=== PATIENT | female | born 1985 | race Caucasian/White ===

== ENCOUNTER 2016-04-29 11:20 | Outpatient (CLI) | payer OTHER | END 2016-04-29 23:59 | disposition home or self-care (01) | DX: Z36 Encounter for antenatal screening of mother (principal) ==

== ENCOUNTER 2016-04-29 12:10 | Outpatient (CLI) | payer OTHER | END 2016-04-29 16:15 | disposition home or self-care (01) | DX: O26.843 Uterine size-date discrepancy, third trimester (principal); O43.193 Other malformation of placenta, third trimester; Z3A.36 36 weeks gestation of pregnancy ==

== ENCOUNTER 2016-05-02 | Outpatient (CLI) | payer OTHER | END 2016-05-02 10:56 | disposition home or self-care (01) ==

== ENCOUNTER 2016-05-05 | Outpatient (CLI) | payer OTHER | END 2016-05-05 10:30 | disposition home or self-care (01) ==

== ENCOUNTER 2016-05-09 09:51 | Outpatient (CLI) | payer OTHER | END 2016-05-09 10:25 | disposition home or self-care (01) | DX: O36.5930 Maternal care for other known or suspected poor fetal growth, third trimester, not applicable or unspecified (principal); Z3A.37 37 weeks gestation of pregnancy ==

== ENCOUNTER 2016-05-23 09:53 | Outpatient (CLI) | payer OTHER ==
[2016-05-23 10:11] VITALS: BP 120/80
== END 2016-05-23 10:30 | disposition home or self-care (01) ==
LOC: WFO 09:53 → OB 09:56 → WFO 10:30
PROVIDERS: ATTEND Obstetrics & Gynecology
DX: O36.5930 Maternal care for other known or suspected poor fetal growth, third trimester, not applicable or unspecified (principal); Z3A.39 39 weeks gestation of pregnancy
CPT/HCPCS: 59025

== ENCOUNTER 2016-05-27 09:13 | Inpatient (IN) | payer OTHER ==
[2016-05-26] MEDS: ACETAMINOPHEN 325 MG TABLET PO PRN (21:18)
[2016-05-27] MEDS: ACETAMINOPHEN 325 MG TABLET PO PRN (04:37)
[2016-05-27] MEDS: LACTATED RINGERS 1,000 ML IV SCH ×2 (09:00→09:24)
[2016-05-27] MEDS: OXYTOCIN/LACTATED RINGERS 250 ML IV SCH (09:00)
[2016-05-27] MEDS: SODIUM CHLORIDE FLUSH 0.9% 10 ML SYRINGE IVP SCH ×4 (09:00→18:08)
[~2016-05-27 09:13] MED LIST: CARBOPROST TROMETHAMINE 250 MCG/ML AMP IM PRN; METHYLERGONOVINE 0.2 MG/ML AMP IM PRN; ONDANSETRON 4 MG/2 ML VIAL IVP PRN; SODIUM CHLORIDE FLUSH 0.9% 10 ML SYRINGE IVP ONE; SODIUM CHLORIDE FLUSH 0.9% 10 ML SYRINGE IVP PRN; TERBUTALINE 1 MG/ML VIAL SUBQ SCH; ZOLPIDEM 5 MG TABLET PO PRN; fentaNYL 100 MCG/2 ML VIAL IVP PRN; miSOPROStol 200 MCG TABLET PR PRN
[2016-05-27] MEDS ORDERED: ZOLPIDEM 5 MG TABLET PO PRN (17:59)
[2016-05-28] MEDS: SODIUM CHLORIDE FLUSH 0.9% 10 ML SYRINGE IVP SCH ×2 (05:12→08:56)
[2016-05-28] MEDS: LACTATED RINGERS 1,000 ML IV SCH ×3 (06:43→08:58)
[2016-05-28] MEDS: OXYTOCIN/LACTATED RINGERS 250 ML IV SCH (08:57)
== END 2016-05-28 19:15 | disposition home or self-care (01) | DRG 781 ==
PROC: 0U7C7ZZ Dilation of Cervix, Via Natural or Artificial Opening (ICD-10-PCS; principal; 2016-05-26)
PROC: 3E033VJ Introduction of Other Hormone into Peripheral Vein, Percutaneous Approach (ICD-10-PCS; 2016-05-27)
DX: O36.5930 Maternal care for other known or suspected poor fetal growth, third trimester, not applicable or unspecified (principal); O26.893 Other specified pregnancy related conditions, third trimester; O61.0 Failed medical induction of labor; O26.843 Uterine size-date discrepancy, third trimester; Z67.91 Unspecified blood type, Rh negative; Z3A.38 38 weeks gestation of pregnancy

== ENCOUNTER 2016-05-31 00:29 | Inpatient (IN) | payer OTHER ==
[2016-05-31] MEDS: LACTATED RINGERS 1,000 ML IV SCH ×4 (00:19→10:55)
[~2016-05-31 00:29] MED LIST changes: -CARBOPROST TROMETHAMINE 250 MCG/ML AMP IM PRN; +DINOPROSTONE 10 MG SUPP VG ONE; -METHYLERGONOVINE 0.2 MG/ML AMP IM PRN; -ONDANSETRON 4 MG/2 ML VIAL IVP PRN; -SODIUM CHLORIDE FLUSH 0.9% 10 ML SYRINGE IVP PRN; -TERBUTALINE 1 MG/ML VIAL SUBQ SCH; -ZOLPIDEM 5 MG TABLET PO PRN; -miSOPROStol 200 MCG TABLET PR PRN
[2016-05-31] MEDS ORDERED: SUFENTA/BUPIV 0.4 MCG/0.0625% 150 ML EP ONE ×2 (00:53→11:03)
[2016-05-31] MEDS ORDERED: LIDOCAINE 1% 50 ML MDV SUBQ ONE (00:58)
[2016-05-31] MEDS ORDERED: ROPIVACAINE 0.2% PF 20 ML AMPULE SUBQ ONE (00:58)
[2016-05-31] MEDS ORDERED: LIDOCAINE 1% 50 ML MDV ONE (06:08)
[2016-05-31] MEDS ORDERED: OXYTOCIN/LACTATED RINGERS 250 ML IV ONE ×2 (06:08→15:08)
[2016-05-31] MEDS ORDERED: SODIUM CHLORIDE FLUSH 0.9% 10 ML SYRINGE IVP PRN (10:46)
[2016-05-31] MEDS ORDERED: LACTATED RINGERS 1,000 ML IV SCH ×2 (11:00→16:00)
[2016-05-31] MEDS ORDERED: METOCLOPRAMIDE 10 MG/2 ML VIAL IVP PRN (12:48)
[2016-05-31] MEDS ORDERED: LACTATED RINGERS 500 ML IV ONE (12:48)
[2016-05-31] MEDS ORDERED: SUFENTA/BUPIV 0.4 MCG/0.0625% EPIDURAL 150 ML EP PRN (12:48)
[2016-05-31] MEDS ORDERED: NALOXONE 0.4 MG/ML VIAL IVP PRN (12:48)
[2016-05-31] MEDS ORDERED: diphenhydrAMINE INJ 50 MG/ML VIAL IVP PRN (12:48)
[2016-05-31] MEDS ORDERED: ONDANSETRON 4 MG/2 ML VIAL IVP PRN (12:48)
[2016-05-31] MEDS ORDERED: NALBUPHINE 20 MG/ML AMP IVP PRN (12:48)
[2016-05-31] MEDS ORDERED: ePHEDrine 50 MG/ML AMP IVP PRN (12:48)
[2016-05-31] MEDS ORDERED: SODIUM CHLORIDE FLUSH 0.9% 10 ML SYRINGE IVP SCH (14:00)
[2016-05-31] MEDS ORDERED: HYDROCORTISONE 1% CREAM 28 GM TUBE PR PRN (15:08)
[2016-05-31] MEDS ORDERED: HYDROCORTISONE/PRAMOXINE 10 GM PR PRN (15:08)
[2016-05-31] MEDS ORDERED: ACETAMINOPHEN 325 MG TABLET PO PRN (15:08)
[2016-05-31] MEDS ORDERED: WITCH HAZEL/GLYCERIN 1 EACH MED..PAD TOP PRN (15:08)
[2016-05-31] MEDS ORDERED: oxyCODONE 5 MG TABLET PO PRN (15:08)
[2016-05-31] MEDS: IBUPROFEN 800 MG TABLET PO SCH (18:21)
[2016-06-01] MEDS: IBUPROFEN 800 MG TABLET PO SCH ×4 (00:03→18:26)
[2016-06-01] MEDS: SIMETHICONE CHEW 80 MG TABLET PO SCH ×4 (09:02→20:09)
[2016-06-01] MEDS: DOCUSATE SODIUM 100 MG CAPSULE PO SCH ×2 (09:02→20:08)
[2016-06-01] MEDS: FERROUS SULFATE 325 MG TABLET PO SCH (09:31)
[2016-06-01] MEDS ORDERED: RHO(D) IMMUNE GLOBULIN 300 MCG SYRINGE IM ONE (15:06)
[2016-06-02] MEDS: IBUPROFEN 800 MG TABLET PO SCH ×2 (00:31→05:46)
[2016-06-02] MEDS: FERROUS SULFATE 325 MG TABLET PO SCH (08:54)
[2016-06-02] MEDS: DOCUSATE SODIUM 100 MG CAPSULE PO SCH (08:54)
== END 2016-06-02 12:00 | disposition home or self-care (01) | DRG 775 ==
PROC: 3E0P7GC Introduction of Other Therapeutic Substance into Female Reproductive, Via Natural or Artificial Opening (ICD-10-PCS; 2016-05-30)
PROC: 0HQ9XZZ Repair Perineum Skin, External Approach (ICD-10-PCS; principal; 2016-05-31)
PROC: 10E0XZZ Delivery of Products of Conception, External Approach (ICD-10-PCS; principal; 2016-05-31)
PROC: 3E0234Z Introduction of Serum, Toxoid and Vaccine into Muscle, Percutaneous Approach (ICD-10-PCS; 2016-06-01)
DX: O36.5930 Maternal care for other known or suspected poor fetal growth, third trimester, not applicable or unspecified (principal); O32.2XX0 Maternal care for transverse and oblique lie, not applicable or unspecified; O76 Abnormality in fetal heart rate and rhythm complicating labor and delivery; O43.193 Other malformation of placenta, third trimester; O69.81X0 Labor and delivery complicated by cord around neck, without compression, not applicable or unspecified; O70.0 First degree perineal laceration during delivery; O99.013 Anemia complicating pregnancy, third trimester; D64.9 Anemia, unspecified; O99.63 Diseases of the digestive system complicating the puerperium; K59.00 Constipation, unspecified; Z3A.39 39 weeks gestation of pregnancy; Z37.0 Single live birth; O26.893 Other specified pregnancy related conditions, third trimester; Z67.41 Type O blood, Rh negative

== ENCOUNTER 2016-11-28 10:50 | Outpatient (CLI) | payer OTHER ==
[2016-11-28 14:33] LABS: BASOPHILS # (AUTO) 0.1 10^3/uL (0.0-0.1); EOSINOPHILS # (AUTO) 0.1 10^3/uL (0.0-0.7); EOSINOPHILS % (AUTO) 1.1 %; HCT - HEMATOCRIT 39.9 % (37.0-47.0); HGB - HEMOGLOBIN 13.5 g/dL (12.0-16.0); LYMPHOCYTES # (AUTO) 1.8 10^3/uL (1.5-3.5); MEAN CORPUSCULAR HEMOGLOBIN 30.1 pg (27.0-31.0); MEAN CORPUSCULAR HGB CONC 33.7 g/dL (32.0-36.0); MEAN CORPUSCULAR VOLUME 89.4 fL (81.0-99.0); MEAN PLATELET VOLUME 9.7 fL (7.9-10.8); MONOCYTES # (AUTO) 0.4 10^3/uL (0.0-1.0); MONOCYTES % (AUTO) 7.9 %; NUCLEATED RED BLOOD CELLS AUTO 0.1 /100WBC; RED BLOOD COUNT 4.47 10^6/uL (4.20-5.40); RED CELL DISTRIBUTION WIDTH 12.7 % (12.0-15.0); UNCORRECTED WHITE BLOOD COUNT 5.4 x10^3/uL; WHITE BLOOD COUNT 5.4 x10^3/uL (4.8-10.8)
[2016-11-28 15:23] LABS: FERRITIN 10.5 ng/mL (11.0-306.8)
[2016-11-28 15:27] LABS: FOLATE 21.68 ng/mL (5.90 - >24.8)
[2016-11-28 17:38] LABS: IRON 110 ug/dL (28-170); TOTAL IRON BINDING CAPACITY 498 ug/dL (250-450); TRANSFERRIN 356 mg/dL (192-382)
== END 2016-11-28 10:51 | disposition home or self-care (01) ==
LOC: LAB.WCP 10:50
PROVIDERS: ATTEND Family Medicine
DX: D50.9 Iron deficiency anemia, unspecified (principal)
CPT/HCPCS: 36415; 82607; 82728; 82746; 83540; 84466; 85025

== ENCOUNTER 2018-11-13 19:58 | Outpatient (CLI) | payer OTHER ==
--- NOTE | 2018-11-14 14:57 | Ultrasound Report ---
Reason: TEST POSITIVE Procedure Date: 11/13/2018 Accession Number: [id number] / [id number] Procedure: US - OB First Trimester CPT Code: FULL RESULT: EXAM: FIRST TRIMESTER OBSTETRIC ULTRASOUND (Less than 11 weeks) EXAM DATE: 11/13/2018 08:34 PM. CLINICAL HISTORY: TEST POSITIVE. LMP: 09/03/2018 COMPARISONS: None. TECHNIQUE: Transabdominal ultrasound examination with static image documentation. CLINICAL DATES: EGA 10 weeks 1 day with SHANE 06/10/2019 based on LMP. ASSESSMENT: Gestational Sac: Single intrauterine. Mean gestational sac diameter: 55 mm = 11 weeks 3 days. Embryo: CRL (crown-rump length) 56 mm = 12 weeks 1 day. Cardiac activity: 158 beats per minute. Yolk sac: Not seen. Amniotic fluid: Not accurately assessed at this gestational age. Early placenta: Anterior. Other: No perigestational fluid collection demonstrated. MATERNAL STRUCTURES: Uterus: Anteverted/. Unremarkable. Cervix: Closed. Right Ovary/Adnexa: The ovary measures 2.6 x 2.6 x 2.4 cm, volume 8.3 cc. Unremarkable. Corpus luteum cyst 2.2 x 1.6 x 1.5 cm Left Ovary/Adnexa: The ovary measures 2.2 x 1.4 x 2.4 cm, volume 3.7 cc. Unremarkable. Free Fluid: None. Other: None. IMPRESSION: 1. Single intrauterine at EGA 12 weeks 1 day with SHANE 05/27/2019 based on crown-rump length, which is discordant with clinical dates. 2. Assigned dating is SHANE 05/27/2019 based on current ultrasound. RADIA
== END 2018-11-13 19:59 | disposition home or self-care (01) ==
LOC: DI 19:58
PROVIDERS: ATTEND Obstetrics & Gynecology
DX: Z32.01 Encounter for pregnancy test, result positive (principal)
CPT/HCPCS: 76801

== ENCOUNTER 2018-11-15 10:45 | Outpatient (CLI) | payer OTHER ==
[2018-11-15 14:42] LABS: MUDS CUTOFF CONCENTRATIONS CUTOFF CONC BELOW:
[2018-11-15 14:47] LABS: BILIRUBIN,URINE NEGATIVE (NEGATIVE); GLUCOSE, URINE (UA) NEGATIVE (NEGATIVE); KETONES,URINE (UA) NEGATIVE (NEGATIVE); LEUKOCYTE ESTERASE, URINE NEGATIVE (NEGATIVE); NITRITE,URINE NEGATIVE (NEGATIVE); OCCULT BLOOD,URINE NEGATIVE (NEGATIVE); PROTEIN,URINE NEGATIVE (NEGATIVE); UROBILINOGEN,URINE 0.2 (NORMAL) E.U./dL (NORMAL)
[2018-11-15 14:48] LABS: CLARITY,URINE CLEAR (CLEAR)
[2018-11-15 14:55] LABS: AMPHETAMINE SCREEN,URINE NEGATIVE (NEGATIVE); BENZODIAZEPINES SCREEN, URINE NEGATIVE (NEGATIVE); COCAINE SCREEN URINE NEGATIVE (NEGATIVE); METHADONE SCREEN, URINE NEGATIVE (NEGATIVE); METHAMPHETAMINES SCREEN, URINE NEGATIVE (NEGATIVE); OPIATE SCREEN, URINE NEGATIVE (NEGATIVE); OXYCODONE SCREEN, URINE NEGATIVE (NEGATIVE); PROPOXYPHENE SCREEN, URINE NEGATIVE (NEGATIVE); TRICYCLIC ANTIDEPRESSANT,URINE NEGATIVE (NEGATIVE)
[2018-11-15 15:00] LABS: BACTERIA,URINE None Seen /HPF (None Seen); RBC,URINE None Seen /HPF (0-5); SQUAMOUS EPITHELIAL CELL,UR NONE SEEN (<= Few)
[2018-11-15 22:21] LABS: TRICHOMONAS VAGINALIS DNA NEGATIVE (NEGATIVE)
== END 2018-11-15 23:59 | disposition home or self-care (01) ==
LOC: LAB.R 10:45
PROVIDERS: ATTEND Obstetrics & Gynecology
DX: Z34.90 Encounter for supervision of normal pregnancy, unspecified, unspecified trimester (principal)
CPT/HCPCS: 80306; 81001; 87086; 87491; 87591; 87661

== ENCOUNTER 2018-11-15 11:04 | Outpatient (CLI) | payer OTHER ==
[2018-11-15 11:37] LABS: BASOPHILS % (AUTO) 0.5 %; EOSINOPHILS # (AUTO) 0.1 10^3/uL (0.0-0.7); EOSINOPHILS % (AUTO) 1.4 %; HGB - HEMOGLOBIN 11.2 g/dL (12.0-16.0); LYMPHOCYTES # (AUTO) 2.3 10^3/uL (1.5-3.5); LYMPHOCYTES % (AUTO) 31.1 %; MEAN CORPUSCULAR HEMOGLOBIN 30.3 pg (27.0-31.0); MEAN CORPUSCULAR HGB CONC 33.8 g/dL (32.0-36.0); MEAN CORPUSCULAR VOLUME 89.5 fL (81.0-99.0); MEAN PLATELET VOLUME 10.2 fL (7.9-10.8); MONOCYTES # (AUTO) 0.6 10^3/uL (0.0-1.0); MONOCYTES % (AUTO) 7.6 %; NEUTROPHILS # (AUTO) 4.4 10^3/uL (1.5-6.6); NEUTROPHILS % (AUTO) 58.9 %; PLT - PLATELET COUNT 250 10^3/uL (130-450); RED CELL DISTRIBUTION WIDTH 11.9 % (12.0-15.0); WHITE BLOOD COUNT 7.4 x10^3/uL (4.8-10.8)
[2018-11-16 11:06] LABS: HIV AG/AB 4TH GEN NON-REACTIVE (NON-REACTIVE)
[2018-11-16 11:22] LABS: HEPATITIS B SURFACE ANTIGEN NON-REACTIVE (NON-REACTIVE)
[2018-11-16 14:07] LABS: HEPATITIS C ANTIBODY NON-REACTIVE (NON-REACTIVE)
== END 2018-11-15 11:05 | disposition home or self-care (01) ==
LOC: LAB 11:04
PROVIDERS: ATTEND Obstetrics & Gynecology
DX: Z34.90 Encounter for supervision of normal pregnancy, unspecified, unspecified trimester (principal)
CPT/HCPCS: 36415; 80306; 81001; 81599; 85025; 86592; 86762; 86803; 86850; 86900; 86901; 87086; 87340; 87389; 87491; 87591; 87661

== ENCOUNTER 2019-01-22 08:42 | Outpatient (CLI) | payer OTHER ==
--- NOTE | 2019-01-22 16:16 | Ultrasound Report ---
Reason: SUPER OF NORMAL Procedure Date: 01/22/2019 Accession Number: [id number] / [id number] Procedure: US - OB Detailed Eval CPT Code: Final Report FULL RESULT: EXAM: COMPLETE OBSTETRICAL ULTRASOUND EXAM DATE: 01/22/2019 10:40 AM. CLINICAL HISTORY: anatomic survey. COMPARISON: OB FIRST TRIMESTER 11/13/2018 8:34 PM. TECHNIQUE: Real-time sonographic evaluation of the fetus performed by the ct tech. Multiple disability representative static images were saved for review. DATING: Established EGA 22 weeks 1 day with SHANE 05/27/2019 based on physician stated. EGA 22 weeks 1 day with SAHNE 05/27/2019 based on prior ultrasound of 11/13/2018. EGA 21 weeks 5 days with SHANE 05/30/2019 based on the current ultrasound. GENERAL EVALUATION Malave . Cardiac activity: 149 bpm. movement: Visualized. Presentation: Breech Placenta: Anterior position. No evidence for previa. Umbilical cord: 3 vessel cord. Central placental cord origin. Amniotic fluid: Subjectively normal. MVP 4.2 cm. Four-quadrant SOY 14.6 cm. BIOMETRY Bi-Parietal Diameter (BPD): 5 cm, 21 weeks 3 days Head Circumference (HC): 18.6 cm, 21 weeks 0 days Abdominal Circumference (AC): 17.5 cm, 22 weeks 3 days Femur Length (FL): 3.8 cm, 22 weeks 1 day Estimated Weight: 482 g, 45.1 percentile for 22 weeks 1 day. ANATOMY The intracranial structures, profile, face/nose/lips, spine, 4 chamber heart and outflow tracts, stomach, abdominal wall and cord insertion, diaphragm, kidneys, bladder, and extremities were visualized and demonstrate no abnormality. MATERNAL STRUCTURES Uterus: Unremarkable. Cervix: Long and closed. Transabdominal length 3.8 cm. Right ovary/adnexa: Unremarkable. Left ovary/adnexa: Unremarkable. Free fluid: None. IMPRESSION: 1. Malave live intrauterine with gestational age 22 weeks 1 day based on physician stated. 2. Estimated weight is within expected limits for assigned dating. 3. Normal anatomic survey. No anatomic abnormalities are detected at this time. RADIA
== END 2019-01-22 08:43 | disposition home or self-care (01) ==
LOC: DI 08:42
PROVIDERS: ATTEND Obstetrics & Gynecology
DX: Z36.89 Encounter for other specified antenatal screening (principal)
CPT/HCPCS: 76811

== ENCOUNTER 2019-02-28 11:17 | Outpatient (CLI) | payer OTHER ==
[2019-02-28 18:48] LABS: HGB - HEMOGLOBIN 10.2 g/dL (12.0-16.0); MEAN CORPUSCULAR HEMOGLOBIN 30.4 pg (27.0-31.0); MEAN CORPUSCULAR HGB CONC 32.4 g/dL (32.0-36.0); MEAN CORPUSCULAR VOLUME 93.8 fL (81.0-99.0); RED BLOOD COUNT 3.36 10^6/uL (4.20-5.40); RED CELL DISTRIBUTION WIDTH 13.2 % (12.0-15.0); WHITE BLOOD COUNT 8.5 x10^3/uL (4.8-10.8)
== END 2019-02-28 23:59 | disposition home or self-care (01) ==
LOC: LAB.N 11:17
PROVIDERS: ATTEND Obstetrics & Gynecology
DX: Z34.90 Encounter for supervision of normal pregnancy, unspecified, unspecified trimester (principal)
CPT/HCPCS: 36415; 82950; 85027; 86850

== ENCOUNTER 2019-03-17 11:11 | Emergency (ER) | payer OTHER ==
--- NOTE | 2019-03-17 11:41 | ED Physician Documentation ---
History of Present Illness - Stated complaint Stated Complaint: FEVER, COUGH, 7 MONTHS PREG - Chief complaint Chief Complaint: Fever - Additonal information Additional information: This is a 33-year-old female who is 7 months , who presents with fever cough and nasal congestion for about 7 days. Patient developed cold symptoms around 7 days ago but it persisted and she says she continues to cough she is sputum which is light green to clear in color. She has had a fever earlier but states that this is improved her last several days. Given the persistence of her cough she will get checked out given that she was and she was concerned this was the flu. No vaginal bleeding, no pelvic cramping, no abdominal pain. Early on in her illness she did have some body aches Review of Systems Constitutional: reports: Fever Throat: denies: Dental pain / toothache Cardiac: denies: Chest pain / pressure Respiratory: reports: Cough GI: denies: Abdominal Pain : denies: Dysuria PD PAST MEDICAL HISTORY - Present Medications Home Medications: Ambulatory Orders Medication Instructions Recorded Confirmed guaiFENesin/DEXTROMETHORPHAN 10 ml PO Q8H PRN #1 bottle 03/17/19 [Robitussin Dm] - Allergies Allergies/Adverse Reactions: Allergies Allergy/AdvReac Type Severity Reaction Status Date / Time No Known Drug Allergies Allergy Verified 05/02/16 10:44 - Social History Smoking Status: Never smoker PD ED PE NORMAL - Vitals Vital signs reviewed: Yes - General General: Alert and oriented X 3, No acute distress - HEENT HEENT: PERRL, Pharynx benign - Neck Neck: Supple, no meningeal sign - Cardiac Cardiac: RRR, No murmur - Respiratory Respiratory: No respiratory distress, Clear bilaterally - Abdomen Abdomen: Soft, Other (Gravid, nontender to palpation all 4 quadrants.) - Derm Derm: Warm and dry - Extremities Extremities: No deformity - Neuro Neuro: Alert and oriented X 3 - Psych Psych: Normal mood, Normal affect Results - Vitals Vitals: Vital Signs - 24 hr 03/17/19 03/17/19 11:17 13:24 Temperature 36.4 C L 36.7 C Heart Rate 73 63 Respiratory 16 12 Rate Blood Pressure 122/67 104/70 O2 Saturation 99 100 Oxygen O2 Source Room air - Labs Labs: Laboratory Tests 03/17/19 12:28 Influenza A (Rapid) Negative Influenza B (Rapid) Negative PD MEDICAL DECISION MAKING - ED course ED course: Patient is well-appearing, she has normal oxygen saturation, clear lungs, no signs of pneumonia, sinutitis, otitis, or strep throat. Her flu swabs are negative. Her symptoms are most consistent with a viral syndrome and given how well-appearing she is, I discussed supportive care with the patient. I prescribed her guaifenisin/dextromethorpan for her cough with instructions to try tea with honey and simple Tylenol first to see if this controls her symptoms. She did have monitoring by OB here which was reassuring and showed normal FHR. I also discussed return precautions with the patient and she was discharged home. Departure - Departure Disposition: Home, Self Care Clinical Impression: Viral URI Condition: Good Instructions: ED Viral Syndrome Prescriptions: guaiFENesin/DEXTROMETHORPHAN [Robitussin Dm] 10 ml PO Q8H PRN #1 bottle PRN Reason: Cough Comments: Your flu swab was negative today, this appears to be a viral illness. You may take Tylenol, Try tea with honey for cough, and if needed for your cough you may use the guaifenesin dextromethorphan syrup, which appears to be safe in at the dose prescribed. If you are developing worsening symptoms such as difficulty breathing, persistent vomiting, Please return to the emergency department Discharge Date/Time: 03/17/19 13:27
[2019-03-17] MEDS ORDERED: ACETAMINOPHEN 325 MG TABLET PO STA (12:11)
[2019-03-17 13:24] VITALS: BP 104/70
== END 2019-03-17 13:27 | disposition home or self-care (01) ==
LOC: ED 11:11
DX: O99.89 Other specified diseases and conditions complicating pregnancy, childbirth and the puerperium (principal); J06.9 Acute upper respiratory infection, unspecified; Z3A.00 Weeks of gestation of pregnancy not specified
CPT/HCPCS: 87275; 87276; 99283; A9270

== ENCOUNTER 2019-04-11 09:57 | Outpatient (CLI) | payer OTHER ==
[2019-04-11 10:55] LABS: HGB - HEMOGLOBIN 10.3 g/dL (12.0-16.0); MEAN CORPUSCULAR HEMOGLOBIN 30.1 pg (27.0-31.0); MEAN CORPUSCULAR HGB CONC 32.6 g/dL (32.0-36.0); MEAN CORPUSCULAR VOLUME 92.4 fL (81.0-99.0); MEAN PLATELET VOLUME 10.5 fL (7.9-10.8); RED BLOOD COUNT 3.42 10^6/uL (4.20-5.40); RED CELL DISTRIBUTION WIDTH 12.9 % (12.0-15.0); WHITE BLOOD COUNT 8.9 x10^3/uL (4.8-10.8)
== END 2019-04-11 09:58 | disposition home or self-care (01) ==
LOC: LAB 09:57
PROVIDERS: ATTEND Obstetrics & Gynecology
DX: D50.9 Iron deficiency anemia, unspecified (principal)
CPT/HCPCS: 36415; 81599; 82728; 83021; 85014; 85018; 85027; 85041

== ENCOUNTER 2019-04-25 18:24 | Outpatient (CLI) | payer OTHER ==
--- NOTE | 2019-04-28 01:19 | Ultrasound Report ---
Reason: SUPER OF NORMAL PREG, IRON DEFIECIENCY ANEMIA Procedure Date: 04/25/2019 Accession Number: [id number] / [id number] Procedure: US - OB F/U or Repeat CPT Code: Final Report FULL RESULT: EXAM: FOLLOW-UP OBSTETRICAL ULTRASOUND EXAM DATE: 04/25/2019 07:37 PM. CLINICAL HISTORY: Supervision of normal , iron deficiency anemia. COMPARISON: OB F/U OR REPEAT 04/29/2016 2:12 PM OB DETAILED EVAL 01/22/2019 9:16 AM. TECHNIQUE: Real-time sonographic evaluation of the fetus performed by the alfalfa dehydrator operator. Additional transvaginal imaging to more accurately evaluate cervical length/placental position/etc. Multiple parts counter representative static images were saved for review. DATING: Established EGA 35 weeks 0 days with SHANE 05/30/2019 based on anatomic survey ultrasound on 01/22/2019, physician stated. EGA 35 weeks 3 days with SHANE 05/27/2019 based on first trimester ultrasound. EGA 33 weeks 3 days with SHANE 06/10/2019 based on LMP, 09/03/2018. EGA 33 weeks 6 days with SHANE 06/07/2019 based on the current ultrasound. GENERAL EVALUATION [place] . Cardiac activity: 125 bpm. movement: Visualized. Presentation: Cephalic. Placenta: Anterior position. Amniotic fluid: Normal. SOY 16 cm. MVP 4.2 cm. BIOMETRY Bi-Parietal Diameter (BPD): 8.2 cm, 33 weeks 0 days Head Circumference (HC): 30 cm, 33 weeks 2 days Abdominal Circumference (AC): 30.1 cm, 34 weeks 0 days Femur Length (FL): 6.9 cm, 35 weeks 2 days EGA 33 weeks 6 days with SHANE 06/07/2019 based on the current ultrasound. Estimated Weight: 2374 g, 25th percentile for 35 weeks 0 days. IMPRESSION: 1. Single living intrauterine fetus. EGA 33 weeks 6 days with SHANE 06/07/2019 based on the current ultrasound. Established EGA 35 weeks 0 days with SHANE 05/30/2019 based on anatomic survey ultrasound on 01/22/2019, physician stated. Estimated Weight: 2374 g, 25th percentile for 35 weeks 0 days. 2. See above. RADIA
== END 2019-04-25 18:25 | disposition home or self-care (01) ==
LOC: DI 18:24
PROVIDERS: ATTEND Obstetrics & Gynecology
DX: O99.013 Anemia complicating pregnancy, third trimester (principal); D50.9 Iron deficiency anemia, unspecified; Z3A.33 33 weeks gestation of pregnancy
CPT/HCPCS: 76816

== ENCOUNTER 2019-05-02 07:00 | Outpatient (CLI) | payer OTHER ==
[2019-05-02 19:40] LABS: TRICHOMONAS VAGINALIS DNA NEGATIVE (NEGATIVE)
== END 2019-05-02 23:59 | disposition home or self-care (01) ==
LOC: LAB.R 07:00
PROVIDERS: ATTEND Obstetrics & Gynecology
DX: Z36.85 Encounter for antenatal screening for Streptococcus B (principal)
CPT/HCPCS: 87491; 87591; 87661; 87797

== ENCOUNTER 2019-05-09 18:19 | Outpatient (CLI) | payer OTHER ==
[2019-05-09 18:33] LABS: HGB - HEMOGLOBIN 10.4 g/dL (12.0-16.0); MEAN CORPUSCULAR HEMOGLOBIN 29.5 pg (27.0-31.0); MEAN CORPUSCULAR HGB CONC 32.3 g/dL (32.0-36.0); MEAN CORPUSCULAR VOLUME 91.5 fL (81.0-99.0); MEAN PLATELET VOLUME 10.4 fL (7.9-10.8); RED BLOOD COUNT 3.52 10^6/uL (4.20-5.40); RED CELL DISTRIBUTION WIDTH 14.1 % (12.0-15.0); WHITE BLOOD COUNT 10.3 x10^3/uL (4.8-10.8)
[2019-05-09 18:57] LABS: % IRON SATURATION 18 % (20-50); IRON 111 ug/dL (28-170); TOTAL IRON BINDING CAPACITY 612 ug/dL (250-450); TRANSFERRIN 437 mg/dL (192-382)
== END 2019-05-09 18:20 | disposition home or self-care (01) ==
LOC: LAB 18:19
PROVIDERS: ATTEND Obstetrics & Gynecology
DX: O99.019 Anemia complicating pregnancy, unspecified trimester (principal)
CPT/HCPCS: 36415; 82728; 83540; 84466; 85027

== ENCOUNTER 2019-05-21 17:58 | Inpatient (IN) | payer OTHER ==
[2019-05-21] MEDS ORDERED: miSOPROStoL 200 MCG TABLET PR PRN (18:13)
[2019-05-21] MEDS ORDERED: METHYLERGONOVINE 0.2 MG/ML VIAL IM PRN (18:13)
[2019-05-21] MEDS ORDERED: ONDANSETRON ODT 4 MG TABLET TL PRN (18:13)
[2019-05-21] MEDS ORDERED: ONDANSETRON 4 MG/2 ML VIAL IVP PRN (18:13)
[2019-05-21] MEDS ORDERED: SODIUM CHLORIDE FLUSH 0.9% 10 ML SYRINGE IVP PRN (18:13)
[2019-05-21] MEDS ORDERED: OXYTOCIN/SODIUM CHLORIDE 500 ML IV PRN (18:13)
[2019-05-21] MEDS ORDERED: CARBOPROST TROMETHAMINE 250 MCG/ML AMP IM PRN (18:13)
[2019-05-21 19:05] LABS: BASOPHILS % (AUTO) 0.4 %; EOSINOPHILS % (AUTO) 0.4 %; HGB - HEMOGLOBIN 10.5 g/dL (12.0-16.0); LYMPHOCYTES # (AUTO) 2.1 10^3/uL (1.5-3.5); LYMPHOCYTES % (AUTO) 22.2 %; MEAN CORPUSCULAR HEMOGLOBIN 30.5 pg (27.0-31.0); MEAN CORPUSCULAR HGB CONC 33.7 g/dL (32.0-36.0); MEAN CORPUSCULAR VOLUME 90.7 fL (81.0-99.0); MEAN PLATELET VOLUME 10.8 fL (7.9-10.8); MONOCYTES # (AUTO) 0.8 10^3/uL (0.0-1.0); MONOCYTES % (AUTO) 8.4 %; NEUTROPHILS # (AUTO) 6.3 10^3/uL (1.5-6.6); NEUTROPHILS % (AUTO) 67.8 %; PLT - PLATELET COUNT 210 10^3/uL (130-450); RED BLOOD COUNT 3.44 10^6/uL (4.20-5.40); RED CELL DISTRIBUTION WIDTH 14.6 % (12.0-15.0); WHITE BLOOD COUNT 9.3 x10^3/uL (4.8-10.8)
[2019-05-21] MEDS: miSOPROStoL 100 MCG TABLET BC SCH ×2 (19:52→23:42)
[2019-05-22] MEDS: miSOPROStoL 100 MCG TABLET BC SCH ×5 (04:17→20:18)
[2019-05-22] MEDS: ACETAMINOPHEN 325 MG TABLET PO PRN (04:22)
--- NOTE | 2019-05-22 05:07 | HISTORY & PHYSICAL EXAMINATION ---
Admit History - Visit Reason Visit Reason: Other - : 2 Parity: 1 Care: positive: [facility] Risk/History: positive: Other (anemia) Complications This : negative: Other (anemia Labs: Oneg, ,Ab neg, RI, , nl pap, neg STI, 1h 83, Hct 31 Rhogam given 03/28/19 Datin/16 by 12w US off 14 from LMP Genetic screen: declined Anatomy: normal, S=D, normal fluid, cx 3.8cm, anterior placenta Vax: s/p Tdap and flu vax Breast pump: given GBS neg 04/28/19 us: 25%ile Problems: -Anemia, chronic, last Hct 31, is on Fe. Normal hemogloibinopatrhy, low ferritin 03/28) Smoking Status: Never smoker - Other Maternal History Other Maternal History: Patient is a 34 yo at 39w1d here for elective IOL. has been generally uncomplicated other than anemia for which she has been taking iron with suboptimal response. Had prior IOL that lasted 5 days, wants to proceed despite history. Endorses FM, denies LOF/VB/CTX Labs: Oneg, ,Ab neg, RI, , nl pap, neg STI, 1h 83, Hct 31 Rhogam given 03/28/19 Datin/16 by 12w US off 14 from LMP Genetic screen: declined Anatomy: normal, S=D, normal fluid, cx 3.8cm, anterior placenta Vax: s/p Tdap and flu vax Breast pump: given GBS neg 04/28/19 us: 25%ile Problems: -Anemia, chronic, last Hct 31, is on Fe. Normal hemogloibinopatrhy, low ferritin 03/28 Meds/Allgy - Home Medications Home Medications: Ambulatory Orders Medication Instructions Recorded Confirmed guaiFENesin/DEXTROMETHORPHAN 10 ml PO Q8H PRN #1 bottle 03/17/19 [Robitussin Dm] - Allergies Allergies/Adverse Reactions: Allergies Allergy/AdvReac Type Severity Reaction Status Date / Time No Known Drug Allergies Allergy Verified 05/02/16 10:44 Review of Systems - Other Findings Other Findings: per HPI, otherwise remaining systems are negative. Physical - Abdominal Exam Vital Signs: Temp Pulse Resp BP Pulse Ox 98 F 69 18 107/68 05/21/19 21:00 05/21/19 21:00 05/21/19 21:00 05/21/19 21:00 Contraction Frequency (min/apart): intermittent Contraction Intensity: negative: Mild - Monitoring Strip Review: positive: Category I - Presentation Presentation: positive: Vertex - Vaginal Exam Membranes: positive: Membranes intact Dilation (in cm): 1 Effacement (%): 60 Station: positive: -2 - Speculum Exam Speculum Exam Performed: positive: No Plan for Labor - Plan For Labor Plan for Labor: ELECTIVE IOL: Unfavorable cervix (per RN and clinic exam) Will proceed with cervical ripening with misoprostol Will start with conservative dose of 25 mcg BC Consider Dyson balloon placement Pitocin when favorable FWB: vertex, Cat I tracing, GBS neg, well grown PAIN: Epidural/nitrous as desired Fentanyl to be limited to 200 mcg total and not to be given after 7 cm ANEMIA: Will type and screen Observation for cervical ripening and then proceed with admission once ruptured or giving pitocin
[2019-05-22] MEDS: SODIUM CHLORIDE FLUSH 0.9% 10 ML SYRINGE IVP SCH (07:58)
[2019-05-22] MEDS ORDERED: fentaNYL 100 MCG/2 ML VIAL IVP PRN (20:26)
[2019-05-22] MEDS ORDERED: ZOLPIDEM 5 MG TABLET PO PRN ×2 (20:48→20:49)
--- NOTE | 2019-05-22 20:52 | PROVIDER PROGRESS NOTE ---
Subjective - Prog Note Date Prog Note Date: 05/22/19 Prog Note Time: 20:49 - Subjective Subjective: LATE ENTRY: Doing well. Has had 5 doses of buccal misoprostol with intermittent contractions. No LOF or VB. Ready for Dyson balloon Objective - Vital Signs/Intake & Output Reviewed Vital Signs: Yes - Objective General Appearance: positive: No acute distress Respiratory: positive: Breath sounds nml Cardiovascular: positive: Regular rate & rhythm Abdomen: positive: Non-tender Skin: positive: Color nml Extremities: positive: Non-tender, No pedal edema Neurologic/Psychiatric: positive: Oriented x3 (SVE 1.5/70/-2/mid EFM 130 mod rubén 15x15 accels no decels TOCO: intermittent) - Lab Results Fish Bones: 05/21/19 18:50 Other Labs: Lab Results x24hrs 05/21/19 Range/Units 18:50 Blood Type O NEGATIVE Antibody Screen POSITIVE Antibody Identification See Comments Assessment/Plan - Problem List (1) Elective induction of labor planned Impression: HAs had 6 doses of miso with suboptimal response. Dyson balloon placed with 60 cc in each balloon. 50 mcg fentanyl given prior to placement GBS neg Ambien tonight only for sleep Start pitocin once Folay balloon falls out Cat I tracing
[2019-05-23] MEDS ORDERED: OXYTOCIN/SODIUM CHLORIDE 500 ML IV SCH (02:10)
[2019-05-23] MEDS: LACTATED RINGERS 1,000 ML IV SCH ×2 (02:11→11:00)
[2019-05-23] MEDS: SODIUM CHLORIDE FLUSH 0.9% 10 ML SYRINGE IVP SCH ×2 (10:02→10:03)
--- NOTE | 2019-05-23 10:25 | PROVIDER PROGRESS NOTE ---
Labor Progress Note - Uterine Monitoring Uterine Monitoring Mode: positive: External toco Contraction Frequency (min/apart): 1-4 Contraction Intensity: positive: Mild to moderate Uterine Resting Tone: positive: Soft - Monitoring Heart Rate Baseline: 135 Heart Rate Variability: positive: Moderate (6-25 bmp) Accelerations: positive: Present, 15x15 Decelerations: positive: None Strip Review: positive: Category I - Vaginal Exam Dilation (in cm): 4 Effacement (%): 75 Station: -1 Cervical Position: Midposition - Labor Progress Note Labor Progress Note/Additional Text: Epidural PRN.
[2019-05-23] MEDS ORDERED: LACTATED RINGERS 500 ML IV ONE (11:15)
[2019-05-23] MEDS ORDERED: ROPIVACAINE 0.2% 200 MG/100 ML BAG EP ONE (11:21)
[2019-05-23] MEDS ORDERED: ROPIVACAINE 0.2% 200 MG/100 ML BAG EP PRN (12:15)
[2019-05-23] MEDS ORDERED: NALBUPHINE 10 MG/ML AMP IVP PRN (12:16)
[2019-05-23] MEDS ORDERED: diphenhydrAMINE INJ 50 MG/ML VIAL IVP PRN (12:16)
[2019-05-23] MEDS ORDERED: ONDANSETRON 4 MG/2 ML VIAL IVP PRN (12:16)
--- NOTE | 2019-05-23 17:32 | PROVIDER PROGRESS NOTE ---
Labor Progress Note - Uterine Monitoring Uterine Monitoring Mode: positive: External toco Contraction Frequency (min/apart): 2-3 Contraction Intensity: positive: Moderate to strong Uterine Resting Tone: positive: Soft - Monitoring Monitor Mode: positive: External ultrasound Heart Rate Baseline: 140 Heart Rate Variability: positive: Moderate (6-25 bmp) Accelerations: positive: Present, 15x15 Decelerations: positive: None Strip Review: positive: Category I - Vaginal Exam Dilation (in cm): 6 Effacement (%): 100 Station: -1 Cervical Position: Midposition - Labor Progress Note Labor Progress Note/Additional Text: AROM clear. Change to D5LR
[2019-05-23] MEDS ORDERED: LACTATED RINGERS 1,000 ML IV SCH ×2 (17:34→21:00)
[2019-05-23] MEDS ORDERED: DEXTROSE 5%-LACTATED RINGERS 1,000 ML IV SCH (18:00)
[2019-05-23] MEDS ORDERED: DEXTROSE 5%-LACTATED RINGERS 500 ML IV SCH (18:00)
[2019-05-23] MEDS ORDERED: WITCH HAZEL/GLYCERIN 1 PAD TOP PRN (20:07)
[2019-05-23] MEDS ORDERED: oxyCODONE 5 MG TABLET PO PRN (20:07)
--- NOTE | 2019-05-23 20:18 | DELIVERY NOTE ---
Delivery Note - Labor Labor: positive: Other (mesoprostal) - Infant Delivery Method Delivery Method: positive: Spontaneous vaginal delivery - Cervical Ripening Method Cervical Ripening Method: positive: Balloon device, Misoprostil - Presentation Presentation: positive: Vertex, DAVID - left occiput anterior - Nuchal Cord Nuchal Cord: positive: None - Anesthetic Anesthetic Type: - Amniotic Fluid Description Amniotic Fluid Description: positive: Clear - Episiotomy Type Episiotomy Type: positive: None - Laceration Laceration: positive: 1st degree, Labial, Perineal - Delivery Outcome Delivery Outcome: positive: Livebirth - [place] : positive: Placed in direct skin contact with mother, Suctioned, Stimul ated, [place] used [place] sex: positive: Female - Cord Cord: positive: 3 vessels - Placenta Placenta: positive: Intact, Spontaneous - Estimated Blood Loss Estimated Blood Loss (in cc): 250 - Post Delivery Events Post Delivery Events: positive: No post delivery events - Delivery Comments (Free Text/Narrative) Delivery Comments (Free Text/Narrative): Patient rechecked at 1717 which time she was felt to be 6 cm. The membranes were artificially ruptured and clear amniotic fluid was encountered. Patient was allowed to labor she was augmented with Pitocin. She reached complete at 1927 and following a practice push she brought the head down quite well. She started pushing at 1944 when the entire table was set and a 1947 she gave to a live female infant the was vigorous during the entire delivery screamed while only partially delivered the infant was placed on the maternal abdomen. Apgars were 9/10. He was stimulated the cord was allowed to continue to pulsate and was not clamped until pulsations and stopped. The cord was cut and the cord blood samples were obtained the placenta spontaneously delivered at 1947 was inspected and felt to be intact. Estimated blood loss was 250 cc both mother and tolerated delivery well sponge and needle counts were correct.
[2019-05-23] MEDS: IBUPROFEN 600 MG TABLET PO SCH (20:40)
[2019-05-24] MEDS: SODIUM CHLORIDE FLUSH 0.9% 10 ML SYRINGE IVP SCH (00:15)
[2019-05-24] MEDS: ACETAMINOPHEN 325 MG TABLET PO PRN ×2 (00:25→06:12)
[2019-05-24] MEDS: IBUPROFEN 600 MG TABLET PO SCH ×2 (04:04→13:12)
--- NOTE | 2019-05-24 11:07 | PROVIDER PROGRESS NOTE ---
Subjective - Prog Note Date Prog Note Date: 05/24/19 Prog Note Time: 10:56 - Subjective Pt reports feeling: Improved (Pain 0-2/10 breast milk in.) Objective - Vital Signs/Intake & Output Reviewed Vital Signs: Yes Vital Signs: Vital Signs x48h Temp Pulse Resp BP Pulse Ox 05/24/19 08:29 36.7 C 57 L 16 112/72 99 05/24/19 04:06 36.6 C 55 L 16 133/73 H 99 Intake & Output: Intake & Output 05/21/19 05/22/19 05/23/19 05/24/19 23:59 23:59 23:59 23:59 Intake Total 3703.150 498.517 Output Total 150 600 Balance 3553.150 -101.483 - Objective General Appearance: positive: No acute distress, Alert Abdomen: positive: Non-tender, No distention, Mass (U-2) Extremities: negative: Calf tenderness, Chadwick's sign/cords - Lab Results Fish Bones: 05/21/19 18:50 Other Labs: Lab Results x24hrs 05/21/19 Range/Units 18:50 Blood Type O NEGATIVE Antibody Screen POSITIVE Antibody Identification See Comments OLEKSANDR, IgG Specific NEGATIVE OLEKSANDR, Polyspecific NEGATIVE OLEKSANDR, C3d Specific Not Reportable Assessment/Plan - Problem List (1) (spontaneous vaginal delivery) Impression: Pt is doing well. Discharge Meds motrin Home supply Contraception
--- NOTE | 2019-05-24 11:11 | Discharge Plan ---
Discharge Plan Problem Reviewed?: Yes Disposition: Home, Self Care Condition: Good Diet: Regular Activity Restrictions: Pelvic rest 6 weeks Shower Restrictions: No Driving Restrictions: No No Smoking: If you smoke, Please STOP! Call for help.
--- NOTE | 2019-05-24 11:55 | DISCHARGE SUMMARY ---
Physician: Seth Lechuga MD DATE OF ADMISSION: 05/21/2019 DATE OF DISCHARGE: 05/24/2019 ADMITTING DIAGNOSES 1. 39 weeks. 2. Elective induction. 3. Rh negative. DISCHARGE DIAGNOSES 1. 39 weeks. 2. Elective induction. 3. Rh Negative. PROCEDURES 1. Cervical ripening with misoprostol. 2. Cook catheter cervical ripening. 3. Epidural. 4. Artificial rupture of membranes. 5. Spontaneous vaginal delivery. PRESENTING HISTORY: Patient is a 34-year-old. She G2, P1. Patient is 39 weeks' gestational age and presented with request of elective induction. Her course was unremarkable. She was noted to be O negative, received RhoGAM. She also had difficulty with anemia during her . She was seen in the clinic, at which time, her cervix was noted to be long fingertip. She presented for cervical ripening. LABORATORIES: CBC on admission showed a white count of 9.4, hemoglobin was 10.5, platelets were 210. HOSPITAL COURSE: Patient was admitted, received multiple doses of misoprostol. She eventually had a Cook catheter placed for cervical ripening. This came out and she was noted to be 4 cm dilated. She had an epidural placed for labor analgesia and then had Pitocin initiated. She had an epidural placed for labor analgesia. She got to 6 cm. Her membranes were artificially ruptured. She was rechecked roughly o'clock later and was noted to be complete. She had a very short second stage. She pushed through 2 contractions, at which time she delivered a live female with Apgars of 9 and 10. Her blood loss at delivery was only 250 mL. She suffered no lacerations. , she has done well. Her breast milk has come in. She is requesting NuvaRing for contraception. infant was noted to be Rh +. Pt received Rhogam. Her discharge medications are those of NuvaRing, as well as home supply of Motrin and Tylenol. We reviewed mastitis, contraception. She will be followed up in the clinic. TD: 05/24/2019 11:17 MANDA
[2019-05-24] MEDS ORDERED: RHO(D) IMMUNE GLOBULIN 300 MCG SYRINGE IM ONE ×2 (16:01→16:30)
[2019-05-24 16:37] VITALS: BP 117/71
--- NOTE | 2019-05-24 22:11 | Labor Flowsheet ---
Labor Flowsheet Datetime Report Generated by CPN: 05/24/2019 22:10 Datetime: 05/24/2019 19:33 VITAL SIGNS NBP Sys/Chanell/Mean (mmHg): 118 : 82 : 90 Pulse: 58 Datetime: 05/24/2019 03:59 SpO2 (%): 100 Datetime: 05/23/2019 22:47 Temperature (C): 36.5 Datetime: 05/23/2019 19:55 Stage of : Datetime: 05/23/2019 19:54 Stage 2 Comments: Placenta delivered spontaneously, visually intact. Routine discard Datetime: 05/23/2019 19:45 UTERINE ACTIVITY Monitor Mode: External Frequency (min): 2-2.5 Quality: Strong Duration (sec): 50-70 Pattern: Normal: <= 5 Contractions in 10 Minutes Resting Tone (Palpate): Relaxed Pitocin Checklist: At Least 1 Acceleration of 15 bpm x 15 Seconds in 30 Minutes or Adequate Variabi lity; No More than 1 Late Deceleration Occurred in Past 30 Minutes; No More than 5 Uterine Contractio ns in 10 Minutes for any 20 Minute Interval; Uterus Palpates Soft between Contractions ASSESSMENT A Monitor Mode: Telemetry FHR Baseline Rate : 145 Variability: Moderate 6-25 bpm Accelerations: 10X10 Decelerations: Early; Variable Category: Category II LaborFlag: Labor Datetime: 05/23/2019 19:44 STAGE 2 Pushing: Coached on Pushing; Urge to Push; No Urge to Push Pushing Position: Pushing with Contractions; Pushing Lithotomy Pushing Progress: Descent with Pushing; Perineal Bulging; Presenting Part Visible; with Pu shing; Pushing Effectively with Contractions Datetime: 05/23/2019 19:30 Respirations: 20 Comments: Dr. Lechuga in room @ 1923. VE @ 1928 Complete/100/+2 Datetime: 05/23/2019 19:28 VAGINAL EXAM Dilatation (cm): 10.0 Effacement (%): 100 Station: 2 Exam by: Dr. Lechuga Cervix, Consistency: Soft Cervix, Position: Anterior Datetime: 05/23/2019 19:23 MATERNAL ASSESSMENT Level of Consciousness: Fully Conscious Headache: Denies Breath Sounds, Left: Clear and Equal Breath Sounds, Right: Clear and Equal Nausea/Vomiting: Denies RUQ Epigastric Pain: Denies Datetime: 05/23/2019 18:22 Anesthesia Level Check: T10- Umbilicus Datetime: 05/23/2019 17:18 Membrane Status: Ruptured Membranes Rupture Method: Artificial Amniotic Fluid Color: Clear Amniotic Fluid Amount: Moderate Amniotic Fluid Odor: None Datetime: 05/23/2019 17:17 COMMUNICATION Communication: Provider at Bedside Datetime: 05/23/2019 17:10 MEDICATIONS Pitocin (milliunits): Increased to @ 14 Datetime: 05/23/2019 17:01 Pain Presence: None/Denies Datetime: 05/23/2019 14:03 Patient Position/Activity: Semi-Fowlers Patient Care Comments: throne position Datetime: 05/23/2019 12:37 I/O Interventions: Dyson Cath Inserted Datetime: 05/23/2019 12:30 PAIN Pain Scale: 0 Datetime: 05/23/2019 11:47 Epidural Procedure: Loading Dose Datetime: 05/23/2019 11:31 PROCEDURE TIME OUT Procedure Verify: Correct Patient Identity; Correct Side and Site are Marked; Accurate Procedure Co nsent Form; Agreement on Procedure to be Done; Correct Patient Position; Safety Precautions Based on Patient History or Medication Use Datetime: 05/23/2019 11:27 ANESTHESIA Epidural Positioning: Sitting Datetime: 05/23/2019 11:20 Anesthesia Comments: anesthesia here for consent Datetime: 05/23/2019 11:15 Communication Comments: anesthesia called for epidural, give 500cc bolus platets reported 210 Datetime: 05/23/2019 07:30 Contraction Comments: coupling Datetime: 05/23/2019 05:30 FHR Baseline Changes: No Baseline Change Datetime: 05/23/2019 05:15 Monitor Interventions for UA: [place] Adjusted Monitor Interventions for FHR: Ultrasound Adjusted Datetime: 05/23/2019 05:06 Pain Coping: Declines Medication or Epidural Pain Assessment Comments: Pain remains a 6 with ctx but relaxed between ctx. Pt continues to try to get rest. PATIENT CARE IV/Blood Work: IV Infusing per Order Hygiene: Underpad Changed; Linens Changed Datetime: 05/23/2019 01:45 Vaginal Bleeding: None Datetime: 05/22/2019 21:00 Analgesics/Sedatives: Ambien (mg) @ 5 Medication Comments: per pt request Datetime: 05/22/2019 20:21 Provider Reviewed Strip: Yes Notification Reason: Status Update Datetime: 05/22/2019 20:20 Cervical Ripening Agents: Dyson Balloon; Cytotec @ Datetime: 05/22/2019 19:30 Pain Type: Contraction Datetime: 05/22/2019 18:44 Oxygen Method: Room Air Datetime: 05/22/2019 18:02 Pain Location: Abdomen Datetime: 05/22/2019 12:02 Comfort Measures: Family Support Datetime: 05/22/2019 07:50 TEACHING Instructional Method: Verbal; Family/Support Person Instructed Plan of Care: Plan of Care Discussed; Induction Unit Routine: [place] to Room; Call Alfredo; Bed; Visiting Policy; Handwashing; Monitoring; Medic ations Labor/Induction: Cervical Ripening; Induction Pain Management: Epidural Medications: Cervical Ripening Related: Common Discomforts of ; Hydration Datetime: 05/21/2019 20:18 Membranes Ruptured Date/Time: 05/23/2019 17:19 Cervical Ripening Agents Other: Cytotec 25mcg [id number] Datetime: 05/21/2019 19:45 Temperature (F): 98.0 Temperature (C): 36.7 Datetime: 05/21/2019 18:26 Temperature Route: Oral
== END 2019-05-24 21:15 | disposition home or self-care (01) | DRG 807 ==
LOC: WFO 17:58 → FBP 18:03 → WFO 18:12 → FBP 18:13 → OBSVTOIN 05-23 11:46
PROVIDERS: ADMIT Obstetrics & Gynecology; ATTEND Obstetrics & Gynecology
PROC: 10E0XZZ Delivery of Products of Conception, External Approach (ICD-10-PCS; principal; 2019-05-23)
PROC: 10907ZC Drainage of Amniotic Fluid, Therapeutic from Products of Conception, Via Natural or Artificial Opening (ICD-10-PCS; 2019-05-23)
DX: O99.02 Anemia complicating childbirth (principal); Z37.0 Single live birth; O70.0 First degree perineal laceration during delivery; Z3A.39 39 weeks gestation of pregnancy
CPT/HCPCS: 36415; 59200; 83033; 85025; 86850; 86870; 86880; 86900; 86901; A9270; G0378; J7120